=== PATIENT | male | born 2000 | race Caucasian/White ===

== ENCOUNTER → 2020-08-02 | Outpatient (CLI) | payer BC ==
--- NOTE | 2020-08-02 12:06 | Diagnostic Imaging Report ---
INDICATION: Status post recent trauma. Now with pain and swelling. COMPARISON: None. FINDINGS: 3 radiographic views of the right hand were obtained and show acute transverse oriented fracture of the distal 5th metacarpal. There is mild angulation with the apex projecting posteriorly. There is no intra-articular extension or other significant displacement of fracture fragments. No other acute osseous abnormalities are seen. Remaining joint spaces are intact. No unexpected radiopaque foreign bodies are identified. IMPRESSION: 1. Acute fracture of the distal 5th metacarpal as described above. Dictated by: Dictated on workstation # [id number]
== END ==
LOC: RAD 11:14
PROVIDERS: ATTEND Nurse Practitioner Family
DX: S62.396A Other fracture of fifth metacarpal bone, right hand, initial encounter for closed fracture (principal); X58.XXXA Exposure to other specified factors, initial encounter
CPT/HCPCS: 73130